=== PATIENT | female | born 1960 | race Caucasian/White ===

== ENCOUNTER 2021-06-16 09:12 | Emergency (ER) | payer OTHER, SELFPAY ==
[2021-06-16] VITALS (8 sets, daily range): BP systolic 157–190; BP diastolic 79–87; PULSE 75–78; RESP 16; TEMP 36.6; O2SAT 98–100
--- NOTE | ~2021-06-16 | XR_ITS ---
XR abdomen/kub 1V 06/16/2021 11:36 INDICATION: Diarrhea and upper abdominal pain TECHNIQUE: KUB COMPARISON: 03/23/2009 FINDINGS: Bowel gas pattern is normal. There is no evidence of free air, mass, organomegaly, ascites or obstruction. No abnormal calculi are seen. The bones appear intact. There are cholecystectomy c lips. IMPRESSION: 1: No acute abdominal abnormality identified. Reviewed, dictated and finalized at location B.
[2021-06-16 09:34] LABS: Basophils Percent Auto 0.5 % (0.2-1.2); Eosinophils Percent Auto 0.6 % (0-4.4); Hematocrit 42.8 % (37.0-47.0); Hemoglobin 14.3 g/dL (12.0-15.0); Immature Granulocyte Absolute 0.02 K/mm3 (0.00-0.031); Immature Granulocyte Percent A 0.3 % (0-0.5); Lymphocytes Absolute Auto 2.08 K/mm3 (0.9-3.2); Lymphocytes Percent Auto 33.4 % (18.3-44.2); Mean Corpuscular HGB Conc 33.4 g/dl (32-36); Mean Corpuscular Hemoglobin 31.2 pg (26-34); Mean Corpuscular Volume 93.4 fl (80-100); Mean Platelet Volume 8.7 fl (7.4-10.4); Monocytes Absolute Auto 0.4 K/mm3 (0.1-0.6); Monocytes Percent Auto 6.9 % (2.6-8.5); Neutrophils Absolute Auto 3.6 K/mm3 (1.3-6.7); Neutrophils Percent Auto 58.3 % (45.5-73.1); Platelet Count Result 229 k/mm3 (150-375); Red Blood Count 4.58 M/mm3 (4.2-5.4); Red Cell Distribution Width 12.7 % (11.5-14.5); White Blood Count 6.2 K/mm3 (4.5-10.0)
[2021-06-16 09:52] LABS: Add Urine Microscopic? YES; Appearance Urine Clear (Clear); Bilirubin Urine Negative (Negative); Blood Urine 1+ (Negative); Color Urine Yellow (Yellow); Glucose Urine UA Negative (Negative); Ketones Urine Negative (Negative); Leukocyte Esterase Ur Negative LEU/UL (Negative); Nitrate Urine Negative (Negative); Protein Urine Negative (Negative); Specific Grav Ur 1.015 (1.001-1.035); Urobilinogen Urine 0.2 mg/dL (<2.0)
[2021-06-16 09:53] LABS: Alanine Aminotransferase 18 U/L (4-35); Alkaline Phosphatase 81 U/L (38-126); Anion Gap 7 mmol/L (8-16); Aspartate Amino Transferase 22 U/L (14-36); Bilirubin,Total 0.9 mg/dL (0.2-1.3); Blood Urea Nitrogen 10 mg/dL (7-17); Calcium 9.7 mg/dL (8.4-10.2); Carbon Dioxide 27 mmol/L (22-30); Chloride 109 mmol/L (98-107); Estimated CRCL calculation 74 ml/min; Estimated Glomerular Filt Rate > 60; Glucose 110 mg/dL (65-110); Lipase 57 U/L (23-300); Sodium 143 mmol/L (137-145)
[2021-06-16 10:03] LABS: Squamous Epithelial Cell Urine Occasional /hpf (Few)
[2021-06-16 10:07] LABS: RBC Urine 0-2 /hpf (0-2)
[2021-06-16 10:08] LABS: WBC Urine 0-3 /hpf (0-3)
[2021-06-16] MEDS: SODIUM CHLORIDE 0.9% IV 1,000 ML 999 ML IV CONT (12:16)
[2021-06-16] MEDS: DICYCLOMINE HCL INJ 20 MG/2 ML VIAL IM (12:16)
--- NOTE | 2021-06-16 12:42 | ED.ABDPAIN ---
HPI - Abdominal Pain General Chief Complaint: Abdominal Pain Stated Complaint: abd pain Time Seen by Provider: 06/16/21 09:20 History of Present Illness HPI narrative: Patient is a 61-year-old female who presents ER with epigastric abdominal pain. Associated diarrhea. Ongoing for 3 weeks. 4 loose stools a day. No blood. No fevers or chills or sweats. No known sick contacts. Denies history of IBS. No recent foreign travel. She has not been on antibiotics. She has tried Imodium without improvement. Related Data Allergies Allergy/AdvReac Type Severity Reaction Status Date / Time No Known Allergies Allergy Mild Unverified 03/23/09 17:35 Review of Systems Review of Systems: All systems reviewed & are unremarkable except as noted in HPI and below Constitutional: Constitutional: Denies chills, Denies fever(s) and Denies weakness ENT: Denies nasal congestion and Denies sore throat Gastrointestinal: Gastrointestinal: Reports abdominal pain, Reports diarrhea, Denies nausea and Denies vomiting PMFSH Past Medical History Medical History (Updated 06/16/21 @ 13:12 by Danile Sin MD) Depression Ectopic Hypertension Surgical History Surgical History (Updated 06/16/21 @ 13:12 by Daniel Sin MD) History of cholecystectomy Social History Social History (Updated 06/16/21 @ 13:12 by Daniel Sin MD) Smoking status: Never smoker Exam Narrative: GENERAL: Well-appearing, well-nourished, and in no acute distress. HEAD: Normocephalic, atraumatic. CHEST: Clear to auscultation. No respiratory distress. HEART: Regular rate and rhythm. Normal peripheral pulses. ABDOMEN: Soft, nontender, nondistended. EXTREMITIES: Normal range of motion. No edema. SKIN: Warm, dry, no rash. NEURO: Alert and oriented x3. PSYCH: Normal mood and affect. Course Course Emergency Course: Hydrated and given IM Bentyl. Unremarkable evaluation. Recommend follow-up with PCP for further treatment evaluation. Vital Signs Vital signs: Vital Signs Temperature 98 F 06/16/21 09:21 Pulse Rate 75 06/16/21 09:21 Respiratory Rate 16 06/16/21 09:21 Blood Pressure 190/84 H 06/16/21 09:21 Pulse Oximetry 99 06/16/21 09:21 Temperature 98 F 06/16/21 09:21 Pulse Rate 75 06/16/21 09:21 Respiratory Rate 16 06/16/21 09:21 Blood Pressure 190/84 H 06/16/21 09:21 Pulse Oximetry 99 06/16/21 09:21 MDM - Abdominal Pain Lab Data Result diagrams: 06/16/21 09:06/16/21 09:28 Labs: Lab Results 06/16/21 06/16/21 06/16/21 Range/Units 09: 09:28 09:45 WBC 6.2 (4.5-10.0) K/mm3 RBC 4.58 (4.2-5.4) M/mm3 Hgb 14.3 (12.0-15.0) g/dL Hct 42.8 (37.0-47.0) % MCV 93.4 (80-100) fl MCH 31.2 (26-34) pg MCHC 33.4 (32-36) g/dl RDW 12.7 (11.5-14.5) % Plt Count 229 (150-375) k/mm3 MPV 8.7 (7.4-10.4) fl Immature Gran % (Auto) 0.3 (0-0.5) % Neut % (Auto) 58.3 (45.5-73.1) % Lymph % (Auto) 33.4 (18.3-44.2) % [place] % (Auto) 6.9 (2.6-8.5) % Eos % (Auto) 0.6 (0-4.4) % Baso % (Auto) 0.5 (0.2-1.2) % Lymph # (Auto) 2.08 (0.9-3.2) K/mm3 [place] # (Auto) 0.4 (0.1-0.6) K/mm3 Eos # (Auto) 0.0 (0-0.3) K/mm3 Baso # (Auto) 0.0 (0.0-0.1) K/mm3 Abs Immat Gran (auto) 0.02 (0.00-0.031) K/mm3 Absolute Neuts (auto) 3.6 (1.3-6.7) K/mm3 Absolute Nucleated RBC 0.0 (0.0-0.012) K/mm3 Nucleated RBC % 0.0 (0.0-0.2) % Sodium 143 (137-145) mmol/L Potassium 4.0 (3.4-5.0) mmol/L Chloride 109 H (98-107) mmol/L Carbon Dioxide 27 (22-30) mmol/L Anion Gap 7 L (8-16) mmol/L BUN 10 (7-17) mg/dL Creatinine 0.80 (0.7-1.0) mg/dL Estim Creat Clear Calc 74 ml/min Estimated GFR > 60 (59 - ) Glucose 110 (65-110) mg/dL Calcium 9.7 (8.4-10.2) mg/dL Total Bilirubin 0.9 (0.2-1.3) mg/dL AST 22 (14-36) U/L ALT 18 (4-35) U/L Alkaline Phosphat
== END 2021-06-16 14:36 | disposition home or self-care (01) ==
PROVIDERS: Emergency Provider Emergency Medicine
DX: R10.13 Epigastric pain (principal); I10 Essential (primary) hypertension
CPT/HCPCS: 36415; 74018; 80053; 81001; 83690; 85025; 96360; 96361; 96372; 99283; J0500; J7030